=== PATIENT | female | born 1975 | race Hispanic/Latino ===

== ENCOUNTER 2017-07-16 22:32 | Emergency (ER) | payer SELFPAY ==
[~2017-07-16] VITALS: Ht 160 cm; Wt 61.6 kg
[2017-07-16 22:38] VITALS: BP 116/81
== END 2017-07-17 01:05 | disposition left against medical advice (07) ==
LOC: EME 22:32
DX: M54.5 Low back pain (principal); Z53.21 Procedure and treatment not carried out due to patient leaving prior to being seen by health care provider

== ENCOUNTER 2017-09-27 12:39 | Emergency (ER) | payer SELFPAY ==
[~2017-09-27] VITALS: Ht 160 cm; Wt 63.2 kg
[2017-09-27] MEDS ORDERED: MOTRIN600 MG PO (14:57)
[2017-09-27] MEDS ORDERED: PERCOCET 5/31 TABLET PO (14:57)
[2017-09-27 15:31] VITALS: BP 148/90
== END 2017-09-27 15:32 | disposition home or self-care (01) ==
LOC: EME 12:39
DX: S22.31XA Fracture of one rib, right side, initial encounter for closed fracture (principal); W18.30XA Fall on same level, unspecified, initial encounter; Z88.0 Allergy status to penicillin
CPT/HCPCS: 71101; 99281; 99283